=== PATIENT | female | born 1990 | race Hispanic/Latino ===

== ENCOUNTER → 2019-05-14 | Outpatient (CLI) | payer OTHER ==
[2019-05-14 17:19] LABS: HEMATOCRIT 40.9 % (36.0-47.0); HEMOGLOBIN 13.1 g/dl (12.0-15.5); MEAN CORPUSCULAR HEMOGLOBIN 28.8 pg (27.0-33.0); MEAN CORPUSCULAR VOLUME 89.9 fl (80.0-96.0); PLATELET COUNT, AUTOMATED 189 10^3/uL (150-450); RED BLOOD COUNT 4.55 10^6/uL (4.00-5.40); WHITE BLOOD COUNT 8.7 10^3/uL (4.0-10.0)
[2019-05-17 13:39] LABS: HEPATITIS C VIRUS ABY INDEX 0.1 INDEX (<0.8)
== END ==
LOC: M SMT 15:06
PROVIDERS: ATTEND Advanced Practice Midwife
DX: Z34.82 Encounter for supervision of other normal pregnancy, second trimester (principal); Z3A.00 Weeks of gestation of pregnancy not specified

== ENCOUNTER → 2019-05-21 | Outpatient (CLI) | payer OTHER | LOC: M SMT 09:32 | PROVIDERS: ATTEND Advanced Practice Midwife | DX: Z34.82 Encounter for supervision of other normal pregnancy, second trimester (principal); Z3A.00 Weeks of gestation of pregnancy not specified ==

== ENCOUNTER → 2019-05-25 | Outpatient (CLI) | payer OTHER ==
--- NOTE | 2019-05-25 08:43 | REP ---
Clinical: Anatomical evaluation. Comparison: None . Findings: Examination demonstrates a single live intrauterine in footling breech presentation. motion is identified by technologist. Placenta is noted anterior and grade zero without evidence for placenta previa or abruption. Amniotic fluid volume is normal. Cervix measures 3.8 cm in length and appears closed. No evidence for nuchal cord. Gestational age by LMP 31 weeks 0 days with CARISSA 07/27/2019 . Gestational age by current measurements 31 weeks 0 days with CARISSA 07/27/2019 . FHR equals 133 beats per minute. BPD 7.2 cm 28 weeks 5 days HC 27.6 cm 30 weeks 2 days AC 29.9 cm 33 weeks 6 days FL 6.0 cm 31 weeks 1 day HL 5.3 cm 31 weeks 0 days HC/AC ratio 0.92 Estimated weight 1926 grams ( 69th percentile). Amniotic fluid index: 9.9 cm Umbilical cord SD ratio: 2.50 Anatomical assessment demonstrates normal structures including cranium, cavum, diaphragm, stomach, three-vessel cord, kidneys/bladder, and spine. Limited evaluation of the cord plexus, posterior fossa, facial features, lungs, heart/ventricular outflow tracts, cord insertion, and extremities. Impression: Single live advanced gestation in breech presentation. While no gross abnormalities are identified, anatomical assessment is limited due to positioning and age. Electronically Signed by Valentín Blake MD 05/25/2019 08:34 A
== END ==
LOC: M RAD 07:11
PROVIDERS: ATTEND Advanced Practice Midwife
DX: Z34.82 Encounter for supervision of other normal pregnancy, second trimester (principal); Z3A.31 31 weeks gestation of pregnancy

== ENCOUNTER → 2019-05-28 | Outpatient (REF) | payer OTHER | LOC: M LAB REF 12:57 | PROVIDERS: ATTEND Advanced Practice Midwife | DX: O34.211 Maternal care for low transverse scar from previous cesarean delivery (principal); Z3A.00 Weeks of gestation of pregnancy not specified ==

== ENCOUNTER → 2019-05-28 | Outpatient (CLI) | payer OTHER | LOC: M LAB 06:53 | PROVIDERS: ATTEND Advanced Practice Midwife | DX: Z36.89 Encounter for other specified antenatal screening (principal); O34.211 Maternal care for low transverse scar from previous cesarean delivery; Z3A.00 Weeks of gestation of pregnancy not specified ==

== ENCOUNTER → 2019-07-08 | Outpatient (REF) | payer OTHER ==
[~2019-07-08] MED LIST: PRENTAB53 PO
== END ==
LOC: M SFHCWAGY 14:05
PROVIDERS: ATTEND Advanced Practice Midwife
DX: Z36.85 Encounter for antenatal screening for Streptococcus B (principal)

== ENCOUNTER 2019-07-20 05:24 | Inpatient (IN) | payer OTHER ==
[2019-07-20] VITALS (8 sets, daily range): BP systolic 116–139; BP diastolic 64–83
[~2019-07-20] VITALS: Ht 160 cm; Wt 85.7 kg
[2019-07-20] MEDS ORDERED: LACTATED RINGER'S 1000 ML IV STA (05:25)
[2019-07-20] MEDS ORDERED: LR 1,000 ML IV SCH ×2 (05:25→08:30)
[2019-07-20] MEDS ORDERED: ceFAZolin SOD 2 GM in IV 1 EA IV ONE (05:30)
[2019-07-20] MEDS ORDERED: BICITRA 30ML SOLN UDC PO ONE (05:30)
[2019-07-20] MEDS ORDERED: AZITHROMYCIN INJ 500MG VIAL (J0456) As Ordered ONE (05:53)
[2019-07-20 05:58] LABS: HEMATOCRIT 44.5 % (36.0-47.0); HEMOGLOBIN 14.7 g/dl (12.0-15.5); MEAN CORPUSCULAR VOLUME 87.8 fl (80.0-96.0); PLATELET COUNT, AUTOMATED 185 10^3/uL (150-450); RED BLOOD COUNT 5.07 10^6/uL (4.00-5.40); WHITE BLOOD COUNT 10.3 10^3/uL (4.0-10.0)
[2019-07-20] MEDS ORDERED: AZITHROMYCIN INJ 500 MG, VIAL MATE ADAPTER 1 EACH in D5W 250 ML IV ONE (06:00)
[2019-07-20] MEDS ORDERED: ONDANSETRON 4MG/2ML VIAL (J2405) As Ordered ONE (06:34)
[2019-07-20] MEDS ORDERED: ROCURONIUM BROMIDE 50 MG/5 ML VIAL As Ordered ONE (06:34)
[2019-07-20] MEDS ORDERED: LIDOCAINE 2% INJ 100 MG/5 ML SDV (FOR ANES.) As Ordered ONE (06:34)
[2019-07-20] MEDS ORDERED: fentaNYL 100 MCG/2 ML INJECTION (J3010) As Ordered ONE ×4 (06:34→08:05)
[2019-07-20] MEDS ORDERED: OXYTOCIN INJ 10 UNITS/ML VIAL (J2590) As Ordered ONE ×2 (06:34→06:42)
[2019-07-20] MEDS ORDERED: dexameTHASONE 4 MG/ML 1ML VIAL (J1100) As Ordered ONE (06:34)
[2019-07-20] MEDS ORDERED: MORPHINE PRES-FREE INJ 10 MG/10 ML VIAL (J2274) As Ordered ONE (06:36)
[2019-07-20] MEDS ORDERED: ACETAMINOPHEN 1000MG 100ML IV BTL (OFIRMEV) (J0131 PER 10MG) As Ordered ONE (06:40)
[2019-07-20] MEDS ORDERED: KETOROLAC 60 MG/2 ML VIAL (J1885) As Ordered ONE (06:40)
[2019-07-20] MEDS ORDERED: SUGAMMADEX SODIUM 500 MG/5 ML VIAL (BRIDION) As Ordered ONE (06:43)
[2019-07-20 07:09] LABS: CORD GAS ABE V -5.4; CORD GAS HCO3 V 21.4 MEQ/L; CORD GAS O2 SAT V 83.7 %; CORD GAS PH V 7.285 UNITS; CORD GAS PO2 V 42.9 mmHg; CORD GAS SBC V 19.8 MEQ/L; CORD GAS TCO2 V 22.8 MEQ/L
[2019-07-20 07:10] LABS: CORD GAS ABE A -4.3; CORD GAS HCO3 A 24.1 MEQ/L; CORD GAS PCO2 A 57.7 mmHg; CORD GAS PH A 7.238 UNITS; CORD GAS SBC A 19.7 MEQ/L; CORD GAS TCO2 A 25.8 MEQ/L
[2019-07-20] MEDS ORDERED: OXYTOCIN 30 UNITS IN 0.9% NaCl 500ML IV BAG (J2590) As Ordered ONE ×2 (07:22→08:19)
[2019-07-20] MEDS ORDERED: MEPERIDINE INJ 25 MG/ML VIAL (J2175) As Ordered ONE (08:05)
[2019-07-20] MEDS: MEPERIDINE INJ 25 MG/ML VIAL (J2175) IV PRN ×2 (08:07→08:12)
[2019-07-20] MEDS: fentaNYL 100 MCG/2 ML INJECTION (J3010) IV PRN ×4 (08:10→08:30)
[2019-07-20] MEDS ORDERED: OXYTOCIN DRIP 30 UNITS in IV 1 EA IV SCH (08:13)
[2019-07-20] MEDS ORDERED: NS 1,000 ML IV SCH (08:13)
[2019-07-20] MEDS ORDERED: EPIDURAL/PCA KEYS XX PRN (08:15)
[2019-07-20] MEDS ORDERED: ONDANSETRON 4MG/2ML VIAL (J2405) IV PRN ×2 (08:15→08:30)
[2019-07-20] MEDS ORDERED: RHOGAM 300 MCG (1500 IU) INJ (J2790) IM SCH (08:15)
[2019-07-20] MEDS ORDERED: ACETAMINOPHEN 500 MG TAB PO PRN (08:15)
[2019-07-20] MEDS ORDERED: diphenhydrAMINE INJ 50MG/ML VIAL (J1200) IV PRN (08:15)
[2019-07-20] MEDS ORDERED: NALBUPHINE HCL 10 MG/ML AMP (J2300) IV PRN (08:15)
[2019-07-20] MEDS ORDERED: MORPHINE 1MG/ML IN 0.9% NACL 100ML IV BAG IV PRN (08:15)
[2019-07-20] MEDS ORDERED: NALOXONE INJ 0.4 MG/1 ML VIAL (J2310) IV PRN (08:15)
[2019-07-20] MEDS ORDERED: MEASLES,MUMPS,RUBELLA VACCINE INJ (MMR-II) (90707) SC SCH (08:15)
[2019-07-20] MEDS ORDERED: PROMETHAZINE 25 MG TAB PO PRN (08:15)
[2019-07-20] MEDS ORDERED: METOCLOPRAMIDE INJ 10MG/2ML VIAL (J2765) IV PRN (08:30)
[2019-07-20] MEDS: DOCUSATE SODIUM 100 MG CAP PO SCH ×2 (09:00→21:47)
[2019-07-20] MEDS: PRENATAL VITAMINS CHEWABLE TABLET PO SCH (09:00)
[2019-07-20 09:02] LABS: HEMATOCRIT 37.7 % (36.0-47.0); MEAN CORPUSCULAR HEMOGLOBIN 28.8 pg (27.0-33.0); MEAN CORPUSCULAR HGB CONC 31.6 g/dl (32.0-36.5); MEAN CORPUSCULAR VOLUME 91.3 fl (80.0-96.0); PLATELET COUNT, AUTOMATED 159 10^3/uL (150-450); RED BLOOD COUNT 4.13 10^6/uL (4.00-5.40); WHITE BLOOD COUNT 20.2 10^3/uL (4.0-10.0)
[2019-07-20 09:14] LABS: HEMOGLOBIN 11.9 g/dl (12.0-15.5)
[2019-07-20] MEDS: LR 1,000 ML IV SCH ×2 (09:53→18:04)
[2019-07-20] MEDS ORDERED: MORPHINE 1MG/ML IN 0.9% NACL 100ML IV BAG As Ordered ONE (09:57)
[2019-07-20] MEDS: KETOROLAC 30 MG/ML VIAL (J1885) IV SCH ×2 (13:07→18:48)
[2019-07-20] MEDS ORDERED: ADACEL/BOOSTRIX VACCINE (DIPHTH/PERTUSS/ACELL/TETANUS)0.5ML SYR (90715) IM ONE (15:00)
[2019-07-21] MEDS: KETOROLAC 30 MG/ML VIAL (J1885) IV SCH (01:26)
[2019-07-21] MEDS: LR 1,000 ML IV SCH (01:31)
[2019-07-21 03:14] VITALS: BP 114/57
[2019-07-21 05:57] VITALS: BP 114/64
[2019-07-21 06:50] LABS: HEMATOCRIT 27.3 % (36.0-47.0); MEAN CORPUSCULAR HEMOGLOBIN 29.3 pg (27.0-33.0); MEAN CORPUSCULAR HGB CONC 32.2 g/dl (32.0-36.5); PLATELET COUNT, AUTOMATED 135 10^3/uL (150-450); WHITE BLOOD COUNT 10.6 10^3/uL (4.0-10.0)
[2019-07-21 06:55] LABS: HEMOGLOBIN 8.8 g/dl (12.0-15.5)
--- NOTE | 2019-07-21 07:44 | IPNPDOC ---
Progress Note Date of Service: Jul 21, 2019 Day#: 1 Progress Note SUBJECT: Rachel is a 29-year-old 2 now Para 2-0-0-2 status post repeat who was in active labor at 39-0/7 weeks. Patient reports minimal pain around the incision site but is doing well otherwise. She has been ambulating, voiding spontaneously without issue and tolerating regular diet. Reports lochia is like a normal period. Patient is ambulating well. Voiding and stooling without difficulty. OBJECTIVE: VITAL SIGNS: Within normal limits, afebrile. Alert and oriented times three. Breath sounds clear to auscultation. Heart rate: Regular rate and rhythm, no murmurs, rubs or gallops. Abdomen: Fundus firm at U-2. Soft, NTTP, incision clean and dry with minimal blood seen on the bandage. Minimal lochia. ASSESSMENT: Patient is a 29-year-old G2 now P2 female postop day 1 for repeat C- section. Patient is doing well. PLAN: Routine nursing care. Discharge home either tomorrow or the following day. VS, I&O, 24H, Fishbone Vital Signs/I&O Vital Signs Date Time Temp Pulse Resp B/P (MAP) Pulse Ox O2 Delivery O2 Flow Rate FiO2 07/21/19 05:57 98.4 90 18 114/64 (81) 98 Room Air I&O- Last 24 Hours up to 6 AM 07/21/19 06:00 Intake Total 2200 ml Output Total 2795 ml Balance -595 ml Laboratory Data 24H LABS Laboratory Tests 2 07/20/19 08:47: Nucleated Red Blood Cells % (auto) 0.0 07/21/19 06:22: Nucleated Red Blood Cells % (auto) 0.0 CBC/BMP Laboratory Tests 07/20/19 08:47 07/21/19 06:22 GME ATTESTATION GME ATTESTATION My faculty preceptor for this patient encounter was physically present during the encounter and was fully available. All aspects of the patient interview, examination, medical decision making process, and medical care plan development were reviewed and approved by the faculty preceptor. The faculty preceptor is aware and concurs with the plan as stated in the body of this note and will attest to such by his/her cosignature. TAMAR ANDRADE DO Jul 21, 2019 07:44
[2019-07-21] MEDS ORDERED: DOCU100C16 PO (08:28)
[2019-07-21] MEDS ORDERED: IBUP80TA PO (08:28)
[2019-07-21] MEDS ORDERED: OXYC1TAB23 PO (08:29)
[2019-07-21] MEDS ORDERED: PERCOCET 5MG/325MG TAB PO PRN ×2 (08:30)
[2019-07-21] MEDS ORDERED: ADACEL/BOOSTRIX VACCINE (DIPHTH/PERTUSS/ACELL/TETANUS)0.5ML SYR (90715) IM ONE (09:00)
[2019-07-21] MEDS: PRENATAL VITAMINS CHEWABLE TABLET PO SCH (09:54)
[2019-07-21] MEDS: IBUPROFEN 800 MG TAB PO SCH ×2 (09:54→16:27)
[2019-07-21] MEDS: DOCUSATE SODIUM 100 MG CAP PO SCH ×2 (09:54→21:43)
[2019-07-21 10:18] VITALS: BP 132/79
[2019-07-21 14:38] VITALS: BP 111/65
[2019-07-21 18:08] VITALS: BP 117/65
[2019-07-21 22:00] VITALS: BP 107/59
[2019-07-22] MEDS: IBUPROFEN 800 MG TAB PO SCH ×2 (00:56→08:44)
[2019-07-22 02:00] VITALS: BP 100/59
[2019-07-22 06:00] VITALS: BP 114/62
[2019-07-22 06:32] LABS: HEMATOCRIT 27.2 % (36.0-47.0); HEMOGLOBIN 8.5 g/dl (12.0-15.5); MEAN CORPUSCULAR HEMOGLOBIN 28.9 pg (27.0-33.0); MEAN CORPUSCULAR HGB CONC 31.3 g/dl (32.0-36.5); MEAN CORPUSCULAR VOLUME 92.5 fl (80.0-96.0); PLATELET COUNT, AUTOMATED 137 10^3/uL (150-450); RED BLOOD COUNT 2.94 10^6/uL (4.00-5.40); WHITE BLOOD COUNT 9.1 10^3/uL (4.0-10.0)
--- NOTE | 2019-07-22 08:08 | OBDS ---
[facility] Obstetrical Discharge Sum. Obstetrical Discharge Summary Bobbin Sorter/Provider: TATUM SOLORZANO DO Date: Jul 22, 2019 : 2 Term: 2 Pre-term: 0 Abortions: 0 Livin VDRL: Non-Reactive Rh: Negative Labor Patient presented to the hospital for a repeat but was in active labor. Patient was contacting and 6 cm dilated. There was concern for uterine rupture so the patient was emergently taken to the operating room for repeat c- section under general anesthesia. Patient tolerated procedure well and mom and baby were taken to the pacu and then to maternity floor without incident. Delivery Emergent was performed under general anesthesia by Dr. Solorzano. Infant was delivered via hysterotomy and cord was doubly clamped and cut. Placenta was removed manually intact. Patient had EBL of greater than 1000cc. Patient CBC was stable on post-op day 2 and patient was feeling well. Patient was deemed ready for discharge at this time. Sex: Female Weight: grams (3300) Anesthesia: General Anesthesia A/P, Post Course List any complications Admission diagnosis: 39+ weeks gestation, active labor, history of low transverse x1, concern for uterine rupture Discharge diagnosis: 39+ weeks gestation, active labor, history of low transverse section x1, uterine window, hemorrhage. Condition at Discharge: Stable Discharge Instructions: Home Activity: No heavy lifting for 2 weeks, as tolerated after that Diet: as tolerated Medications: ibuprofen for pain, Percocet for severe pain Follow-up: 2 weeks for incision check, 6-8 weeks for visit GME ATTESTATION GME ATTESTATION My faculty preceptor for this patient encounter was physically present during the encounter and was fully available. All aspects of the patient interview, examination, medical decision making process, and medical care plan development were reviewed and approved by the faculty preceptor. The faculty preceptor is aware and concurs with the plan as stated in the body of this note and will attest to such by his/her cosignature. TAMAR ANDRADE DO Jul 22, 2019 08:08
[2019-07-22] MEDS: DOCUSATE SODIUM 100 MG CAP PO SCH (08:44)
[2019-07-22] MEDS: PRENATAL VITAMINS CHEWABLE TABLET PO SCH (08:44)
[2019-07-22] MEDS ORDERED: INFLUENZA QUADRIVALENT PF VACCINE 0.5ML SYRINGE (90686) IM ONE (09:00)
== END 2019-07-22 11:58 | disposition home or self-care (01) | DRG 772 ==
LOC: M LDI 05:24 → M OBS 09:24
PROVIDERS: ADMIT Obstetrics & Gynecology; ATTEND Obstetrics & Gynecology
PROC: 10D00Z1 Extraction of Products of Conception, Low, Open Approach (ICD-10-PCS; principal; 2019-07-20 08:30)
DX: O34.211 Maternal care for low transverse scar from previous cesarean delivery (principal); O72.1 Other immediate postpartum hemorrhage; Z3A.39 39 weeks gestation of pregnancy; Z37.0 Single live birth